=== PATIENT | male | born 1960 | race Caucasian/White ===

== ENCOUNTER 2023-03-11 05:34 | Day surgery (SDC) | payer BC ==
[2023-03-11] VITALS (11 sets, daily range): BP systolic 119–135; BP diastolic 60–76; PULSE 53–75; TEMP 97.7–98.7
[~2023-03-11] VITALS: Ht 195.6 cm; Wt 120.0 kg
[2023-03-11] MEDS ORDERED: MEVACOR10 MG PO (05:58)
--- NOTE | 2023-03-11 12:30 | NUR ---
Pt recently arrived to the floor from [place]. He is drowsy, but does wake easily when spoken to. Pt complains of feeling cold, warm blankets applied. Pt at bedside. Lap sites and transverse site all well approximated with no drainage or redness. All sites are [employer]OR. Hannah to dependent drainage and SCDs on. Oriented pt and to room. Educated on diet and advancing as tolerated. Pt refusing anything at this time
--- NOTE | 2023-03-11 14:13 | NUR ---
Pt tolerated clear liquids. Pts diet advanced, educated pt and spouse on room service. Pt does not have IS from RT at this time RT notified
[2023-03-12 00:11] VITALS: BP 106/55; PULSE 66; TEMP 98.1
[2023-03-12 03:54] VITALS: BP 108/58; PULSE 73; TEMP 98.2
[2023-03-12 06:22] LABS: HEMOGLOBIN 12.3 g/dl (13.5-18.0)
[2023-03-12 06:28] LABS: HEMATOCRIT 36.8 % (42.0-52.0)
[2023-03-12 06:34] LABS: CREATININE, serum 0.84 mg/dL (0.72-1.25); POTASSIUM 3.9 mmol/L (3.5-4.5)
--- NOTE | 2023-03-12 07:02 | NUR ---
pain controlled with scheduled and prn meds, IVF infusing per PIV @ 125 cc/hr, tolerating po w/o N/V. kaiser draining clear, yellow urine. on CPAP during the noc.
[2023-03-12 07:59] VITALS: BP 118/57; PULSE 71; TEMP 98.4
--- NOTE | 2023-03-12 08:40 | NUR ---
PT RESTING IN BED WITH PAIN 6/10 IN ABDOMEN, PAIN MEDICAITON PROVIDED PER EMAR. PT UP TO SIDE OF BED, STEADY GAIT. CATHETER DRAINED AND EDUCATION PROVIDED TO PT. WILL CONTINUE TO EDUCATE PLAN TO D/C PT WITH SCOTT. NO NEEDS AT THIS TIME. WILL CONTINUE TO MONITOR.
[2023-03-12 12:20] VITALS: BP 110/46; PULSE 69; TEMP 98.5
[2023-03-12] MEDS ORDERED: NORCO 325 MG-51 TAB PO (13:58)
--- NOTE | 2023-03-12 14:25 | NUR ---
PT AND FAMILY PROVIDED DISCAHRGE INSTRUCTIONS. DISCUSSED CATHETER CARE, EMPTYING SCOTT BAG, SIGNS OF INFECTION, NEW MEDICAITONS, AND FOLLOW UP APPOINTMENTS. SUPPLIES PROVIDED TO PT INCLUDING SCOTT WIPES, REPLACEMENT BAGS, AND LEG ATTACHMENTS. NO QUESTIONS AT THIS TIME. IV REMOVED. PT ESCORTED OUT OF BUILDING AT THIS TIME.
== END 2023-03-12 14:25 | disposition home or self-care (01) ==
LOC: SDCO 05:34 → SURG 11:45 → SDCO 03-12 14:25
PROVIDERS: Urology
DX: C61 Malignant neoplasm of prostate (principal); G47.33 Obstructive sleep apnea (adult) (pediatric); N13.0 Hydronephrosis with ureteropelvic junction obstruction; Z99.81 Dependence on supplemental oxygen
CPT/HCPCS: OP; A4314; A9284; J0690; J1885; J2405; J2704; J3010; J7120